=== PATIENT | female | born 1960 ===

== ENCOUNTER 2023-02-15 07:30 | Day surgery (SDC) | payer OTHER | END 2023-02-15 15:10 | disposition home or self-care (01) | LOC: AMB-ENDOS 07:30 | PROVIDERS: ATTEND Colon & Rectal Surgery | DX: K63.5 Polyp of colon (principal); K57.30 Diverticulosis of large intestine without perforation or abscess without bleeding; R19.4 Change in bowel habit; Z20.822 Contact with and (suspected) exposure to COVID-19 ==